=== PATIENT | male | born 1990 | race Caucasian/White ===

== ENCOUNTER 2022-08-19 15:15 | Emergency (ER) | payer BC ==
[~2022-08-19] VITALS: Ht 193 cm; Wt 149.7 kg
--- NOTE | 2022-08-19 15:45 | NUR ---
BIBS C/O ABDOMINAL DISCOMFORT, NAUSEA VOMITING AND DIARRHEA SINCE WEDNESDAY.
[2022-08-19] MEDS ORDERED: ONDANSETRON HCL/PF 4 MG/2 ML VIAL ONE (16:09)
[2022-08-19] MEDS ORDERED: MORPHINE SULFATE INJ 4 MG/ML DISP.SYRIN ONE (16:09)
--- NOTE | 2022-08-19 16:10 | NUR ---
BLOOD DRWN AND SENT TO LAB
[2022-08-19 16:13] LABS: BASOPHILS % (AUTO) 0.2 % (0.0-2.0); EOSINOPHILS % (AUTO) 0.3 % (0.0-6.0); HEMATOCRIT 44 % (39-51); LYMPHOCYTES # (AUTO) 1.7 K/uL (0.8-4.8); LYMPHOCYTES % (AUTO) 11.2 % (20.0-44.0); MEAN CORPUSCULAR HGB CONC 34 g/dl (31.0-36.0); MEAN CORPUSCULAR VOLUME 88 fL (80-96); MONOCYTES # (AUTO) 1.2 K/uL (0.1-1.30); MONOCYTES % (AUTO) 8.1 % (2.0-12.0); NEUTROPHILS # (AUTO) 12.1 K/uL (1.8-8.9); NEUTROPHILS % (AUTO) 80.2 % (43.0-81.0); PLATELET COUNT (AUTO) 262 K/uL (150-450); RED BLOOD CELL COUNT(AUTO) 5.02 MIL/uL (4.5-6.0); WHITE BLOOD COUNT (AUTO) 15.2 K/uL (4.3-11.0)
[2022-08-19] MEDS: IV NS 0.9% 1,000 ML BAG IV ONE (16:15)
[2022-08-19] MEDS: ONDANSETRON HCL/PF 4 MG/2 ML VIAL IVP ONE (16:20)
--- NOTE | 2022-08-19 16:20 | NUR ---
PATIENT TAKEN TO CT VIA STEPH[facility]
[2022-08-19] MEDS: MORPHINE SULFATE INJ 2 MG/ML DISP.SYRIN IV ONE (16:22)
[2022-08-19 16:34] LABS: BILIRUBIN,DIRECT 0.2 mg/dL (0.0-0.2); BILIRUBIN,TOTAL 0.6 mg/dL (0.2-1.0); CALCIUM, SERUM 9.2 mg/dL (8.5-10.1); CREATININE 1.3 mg/dL (0.6-1.3); POTASSIUM 3.3 mmol/L (3.5-5.1); TOTAL PROTEIN, SERUM 7.9 g/dL (6.4-8.2)
[2022-08-19] MEDS: PIPERACILLIN /TAZOBACTAM 3.375 G in IV D5W 50 ML IV ONE (17:45)
[2022-08-19] MEDS ORDERED: ONDA4TAB5 PO (18:04)
[2022-08-19] MEDS ORDERED: AMOX-430 PO (18:04)
[2022-08-19] MEDS: POTASSIUM CHLORIDE 20 MEQ TAB.PRT.SR PO ONE (18:16)
[2022-08-19] MEDS ORDERED: POTASSIUM CHLORIDE 20 MEQ TAB.PRT.SR PO ONE (18:16)
--- NOTE | 2022-08-19 18:30 | NUR ---
IV removed. Catheter intact and site benign. Pressure and 4x4 applied to site. No bleeding noted.Patient discharged to home in stable condition. Written and verbal after care instructions given. Patient verbalizes understanding of instruction.
[2022-08-19 18:33] VITALS: BP 140/87
== END 2022-08-19 18:30 | disposition home or self-care (01) ==
LOC: ER 15:17
DX: K52.9 Noninfective gastroenteritis and colitis, unspecified (principal); R10.84 Generalized abdominal pain
CPT/HCPCS: 99285; 74176; 96365; 96375; 96361; 85025; 80048; 87040 ×2; 83605; 83690; 80076; 36415; J2270; J2405; J2543; J7060; J7030

== ENCOUNTER 2024-01-05 08:49 | Emergency (ER) | payer BC ==
[~2024-01-05] VITALS: Ht 193 cm; Wt 158.8 kg
[~2024-01-05 08:49] MED LIST: AMOX-430 PO; ONDA4TAB5 PO
[2024-01-05 09:48] VITALS: BP 140/88; TEMP 98.2; O2SAT 98
== END 2024-01-05 09:45 | disposition home or self-care (01) ==
LOC: ER 08:49
DX: R09.A2 Foreign body sensation, throat (principal)